=== PATIENT | male | born 1975 | race Caucasian/White ===

== ENCOUNTER 2020-10-28 22:40 | Emergency (ER) | payer SELFPAY ==
[2020-10-28 23:00] VITALS: BP 115/82; PULSE 80
[2020-10-28] MEDS ORDERED: Glucagon,Human Recombinant 1 MG Vial IM ONE (23:26)
--- NOTE | 2020-10-28 23:31 | EDM.PDOC ---
ED HPI GENERAL MEDICAL PROBLEM - General Chief Complaint: General Stated Complaint: piece of meat stuck in throat Time Seen by Provider: 10/28/20 23:07 Source of Information: Reports: Patient History Limitations: Reports: No Limitations - History of Present Illness INITIAL COMMENTS - FREE TEXT/NARRATIVE: Patient presents with a piece of meat stuck in his lower esophagus. He says this happened around 7:00 tonight. He hasn't eaten anything since but has tried drinking water which hasn't gone down and comes back up. He has had this happen once before, 2-3 years ago and had to go to [place] for removal. He denies any breathing or airway difficulty. - Related Data Allergies Allergy/AdvReac Type Severity Reaction Status Date / Time No Known Drug Allergies Allergy none Verified 10/28/20 23:01 Home Meds: Home Meds . [No Known Home Meds] 06/19/16 [History] Past Medical History - Past Health History Medical/Surgical History: Denies Medical/Surgical History - Past Surgical History HEENT Surgical History: Reports: Tonsillectomy Social & Family History - Family History Family Medical History: No Pertinent Family History - Tobacco Use Tobacco Use Status *Q: Never Tobacco User - Caffeine Use Caffeine Use: Reports: Soda - Recreational Drug Use Recreational Drug Use: No - Living Situation & Occupation Occupation: Employed ED ROS GENERAL - Review of Systems Review Of Systems: See Below Constitutional: Denies: Fever, Chills, Malaise, Weakness HEENT: Denies: Ear Pain, Throat Pain, Vision Change Respiratory: Denies: Shortness of Breath, Cough Cardiovascular: Denies: Syncope GI/Abdominal: Denies: Vomiting Skin: Denies: Cyanosis, Jaundice, Mottled, Pallor Neurological: Denies: Confusion, Syncope, Trouble Speaking, Difficulty Walking Psychiatric: Denies: Agitation, Anxiety, Confusion ED EXAM, GENERAL - Physical Exam Exam: See Below Exam Limited By: No Limitations General Appearance: Alert, WD/WN, No Apparent Distress Eye Exam: Bilateral Eye: EOMI, Normal Inspection, PERRL Ears: Normal External Exam, Hearing Grossly Normal Nose: Normal Inspection, No Blood Throat/Mouth: Normal Inspection, Normal Lips, Normal Teeth, Normal Gums, Normal Oropharynx, Normal Voice, No Airway Compromise Head: Atraumatic, Normocephalic Neck: Normal Inspection, Full Range of Motion Respiratory/Chest: No Respiratory Distress, Lungs Clear, Normal Breath Sounds, No Accessory Muscle Use. No: Stridor Cardiovascular: Regular Rate, Rhythm, No Murmur GI/Abdominal: Normal Bowel Sounds, Soft, Non-Tender, No Organomegaly, No Distention, No Abnormal Bruit, No Mass Back Exam: Normal Inspection, Full Range of Motion Extremities: Normal Inspection, Normal Range of Motion Neurological: Alert, Oriented, Normal Cognition, No Motor/Sensory Deficits Psychiatric: Normal Affect, Normal Mood Skin Exam: Warm, Dry, Intact, Normal Color, No Rash Course - Vital Signs Last Recorded V/S: Last Vital Signs Temp 98.0 F 10/28/20 22:48 Pulse 80 10/28/20 22:48 Resp 18 10/28/20 22:48 BP 115/82 10/28/20 22:48 Pulse Ox 96 10/28/20 22:48 - Re-Assessments/Exams Free Text/Narrative Re-Assessment/Exam: 10/28/20 23:32 I discussed case with Asha Willams who recommended no imaging but try Coca-Cola and jumping up and down. After 4-5 times of this it usually moves through. He also uses Glucagon 1 mg IM to relax the smooth muscle. Patient is willing to try this. 10/29/20 00:12 Patient tried several times with the drink and we gave the Glucagon shot. No success. He would like to go to [facility] in [place]. I discussed case with Dr. Hardy, ER in [facility] who accepted for transfer. She will likely call in a surgeon to remove this. Discussed findings and plan with patient who has a family member who will drive him there now. Patient is stable with no airway involvement; I feel this is appropriate for transfer via private vehicle. Departure - Departure Time of Disposition: 00:09 Disposition: DC/Tfer to Acute Hospital 02 Condition: Good Clinical Impression: Esophageal foreign body Qualifiers: Encounter type: initial encounter Qualified Code(s): T18.108A - Unspecified foreign body in esophagus causing other injury, initial encounter - Discharge Information Referrals: Magdy James, FI[employer] REPORTER [Primary Care Provider] - Additional Instructions: Go directly to [facility] in [place]. Don't try eating anything before you see the doctor there. Sepsis Event Note (ED) - Evaluation Sepsis Screening Result: No Definite Risk - Focused Exam Vital Signs: Vital Signs Temp Pulse Resp BP Pulse Ox 10/28/20 22:48 98.0 F 80 18 115/82 96
== END 2020-10-29 00:19 ==
LOC: KA.ED 22:40
DX: T18.128A Food in esophagus causing other injury, initial encounter (principal); Z90.49 Acquired absence of other specified parts of digestive tract
CPT/HCPCS: 96372; 99284; J1610